=== PATIENT | male | born 1990 | race Caucasian/White ===

== ENCOUNTER 2018-10-26 10:50 | Inpatient (IN) | payer SELFPAY ==
[2018-10-26] MEDS ORDERED: GABAPENTIN 300 MG CAPSULE PO PRN (11:00)
== END 2018-10-26 12:11 | disposition home or self-care (01) | DRG 885 ==
LOC: TELE-TD3 10:50 → UNDOADMIN 10:50 → TELE3 11:19 → UNDOADMIN 11:32 → MEDSURG3 11:32 → GPSOV3 11:41
DX: F29 Unspecified psychosis not due to a substance or known physiological condition (principal); Z75.3 Unavailability and inaccessibility of health-care facilities